=== PATIENT | female | born 1990 | race Caucasian/White ===

== ENCOUNTER 2017-04-23 15:46 | Emergency (ER) | payer BC ==
[~2017-04-23] VITALS: Ht 167.6 cm; Wt 63.0 kg
[2017-04-23 16:36] LABS: ASPARTATE AMINO TRANSFERASE 11 U/L (15-37); BLOOD UREA NITROGEN 13 mg/dL (7-18)
[2017-04-23 18:36] VITALS: BP 102/60
== END 2017-04-23 18:44 | disposition home or self-care (01) ==
LOC: ED 18:20
DX: O26.891 Other specified pregnancy related conditions, first trimester (principal); R42 Dizziness and giddiness; Z3A.14 14 weeks gestation of pregnancy
CPT/HCPCS: 36415; 80053; 81003; 85025; 85610; 85730; 93005; 99285